=== PATIENT | male | born 1965 | race Hispanic/Latino ===

== ENCOUNTER → 2018-04-17 | Day surgery (SDC) | payer MEDICARE ==
[~2018-04-17] MED LIST: AMLODIPINE BESY10 MG PO; ASPIRIN81 MG PO; ATORVASTATIN CA20 MG PO; CILOSTAZOL100 MG PO; CLONIDINE HCL0.1 MG PO; FENTANYL CITRATE/PF 100MCG/2 ML INJ ONE; GABAPENTIN300 MG PO; GLIPIZIDE-METF1 EAC2 PO; HYDRALAZINE HCL 20 MG/ML VIAL ONE; MIDAZOLAM HCL 2 MG/2 ML VIAL ONE; OR PHACO EYE KIT ONE; PREOP PHACO EYE KIT ONE; SERTRALINE HCL50 MG PO
[2018-04-17 14:30] VITALS: BP 131/82
--- NOTE | 2018-04-17 23:33 | Operative Report ---
DATE OF PROCEDURE: April 17, 2018 PREOPERATIVE DIAGNOSIS: Dense cataract of the left eye. POSTOPERATIVE DIAGNOSIS: Dense cataract of left eye. PROCEDURE: Complicated phacoemulsification with posterior chamber intraocular lens. ANESTHESIA: MAC. COMPLICATIONS: None. LENS: Arcenio SN60WF, 23.5 diopter lens. PROCEDURE IN DETAIL: The patient was taken to the operating room where they had tetracaine drops placed in the eye. Patient's eye was then prepped and draped in the usual sterile ophthalmic way. A lid speculum was placed in the eye and a side-port incision was made. There was evidence of small amount of silicone oil in the anterior chamber and this was aspirated out with a TB syringe. 0.2 mL of 1% lidocaine preservative free was injected in anterior chamber. An air bubble was injected in anterior chamber. Trypan blue dye was used to stain the anterior capsule secondary to a dense cataract. BSS solution was used to irrigate this out. Viscoelastic was placed in the anterior chamber and a keratome was used to make a temporal clear corneal incision. A cystotome and Utrata forceps were used to create an anterior capsulorrhexis without any complications. Hydrodissection was then performed. Phacoemulsification probe was placed in the eye, and the nucleus was phacoemulsified using the [id number] technique. Irrigation-aspiration handpiece was then used to remove any residual cortical material. Viscoelastic was placed in the capsular bag, and an Arcenio SN60WF 23.5 diopter lens was placed in the bag without any complications. Irrigation-aspiration handpiece was then used to remove any residual viscoelastic material from within the eye. Miostat was injected in the anterior chamber, and the wound was checked to make sure there was no evidence of leakage. Two drops of Vigamox were placed in the eye with Maxitrol ointment. A Tom shield was placed on the eye to protect the eye. Patient tolerated the procedure well and will be seen in my office tomorrow. Job#: [id number]
== END | disposition home or self-care (01) ==
LOC: OR 10:50
PROVIDERS: ATTEND Ophthalmology
DX: H25.12 Age-related nuclear cataract, left eye (principal); H54.61 Unqualified visual loss, right eye, normal vision left eye; E78.00 Pure hypercholesterolemia, unspecified; E11.9 Type 2 diabetes mellitus without complications; I10 Essential (primary) hypertension; F41.9 Anxiety disorder, unspecified; F17.210 Nicotine dependence, cigarettes, uncomplicated; Z79.82 Long term (current) use of aspirin; Z79.84 Long term (current) use of oral hypoglycemic drugs
CPT/HCPCS: 36415; 66982; 82948; J0360; J2250

== ENCOUNTER → 2020-03-30 | Outpatient (CLI) | payer OTHER ==
[~2020-03-30] MED LIST changes: -FENTANYL CITRATE/PF 100MCG/2 ML INJ ONE; -HYDRALAZINE HCL 20 MG/ML VIAL ONE; -MIDAZOLAM HCL 2 MG/2 ML VIAL ONE; -OR PHACO EYE KIT ONE; -PREOP PHACO EYE KIT ONE
== END ==
LOC: MRI 10:36
PROVIDERS: ATTEND Podiatrist Foot & Ankle Surgery
DX: M86.072 Acute hematogenous osteomyelitis, left ankle and foot (principal)

== ENCOUNTER → 2021-02-12 | Outpatient (CLI) | payer OTHER | LOC: NM 08:07 | PROVIDERS: ATTEND Internal Medicine | DX: K80.00 Calculus of gallbladder with acute cholecystitis without obstruction (principal) | CPT/HCPCS: 78227; A9537 ==

== ENCOUNTER → 2021-04-07 | Day surgery (SDC) | payer MEDICARE, OTHER ==
[2021-04-05 08:45] LABS: BASOPHILS # (AUTO) 0.1 (0.0-0.1); BASOPHILS % 0.6 % (0.0-1.0); EOSINOPHILS # (AUTO) 0.6 (0.0-0.4); EOSINOPHILS % 5.7 % (0.0-6.0); HEMATOCRIT 46.5 % (38.2-49.6); HEMOGLOBIN 14.3 g/dL (14.0-18.0); LYMPHOCYTES # (AUTO) 1.6 (1.0-3.2); LYMPHOCYTES % 15.2 % (18.0-39.1); MEAN CORPUSCULAR HEMOGLOBIN 28.3 pg (28-32); MEAN CORPUSCULAR HGB CONC 30.8 g/dL (31-35); MEAN CORPUSCULAR VOLUME 91.9 fL (81-99); MONOCYTES # (AUTO) 0.8 (0.2-0.8); MONOCYTES % 8.1 % (4.4-11.3); NEUTROPHILS # (AUTO) 7.1 (2.1-6.9); NEUTROPHILS % 70.1 % (38.7-80.0); PLATELET COUNT 253 x10e3/uL (140-360); RED BLOOD COUNT 5.06 x10e6/uL (4.3-5.7)
[2021-04-05 09:12] LABS: ANION GAP 13.5 mmol/L (8-16); CALCIUM 9.7 mg/dL (8.4-10.2); CREATININE, SERUM 1.94 mg/dL (0.72-1.25); POTASSIUM 4.5 mmol/L (3.5-5.1)
[2021-04-05 09:23] LABS: COLOR,URINE YELLOW (YELLOW)
[2021-04-05 09:24] LABS: CLARITY,URINE SL CLOUDY (CLEAR); KETONES,URINE NEGATIVE (NEGATIVE); LEUKOCYTE ESTERASE ,URINE NEGATIVE (NEGATIVE); NITRITE,URINE NEGATIVE (NEGATIVE); PROTEIN,URINE DIPSTICK 1+ (NEGATIVE); URINE UROBILINOGEN 0.2 mg/dL (0.2 - 1)
[~2021-04-07] MED LIST changes: +BUPIVACAINE 0.25% 30ML SDV ONE; +CLONIDINE HCL0.3 MG PO; +CLOPIDOGREL75 MG PO; +FARXIGA10 MG PO; +FENTANYL CITRATE/PF 100MCG/2 ML INJ ONE; +FOLIC ACID0.4 MG PO; +GLYCOPYRROLATE INJ 0.2 MG/ML VIAL ONE; +JANUVIA25 MG PO; +LIDOCAINE HCL 2% LOCAL INJ 5 ML SDV VIAL INJ ONE; +MELATONIN3 MG PO; +METOPROLOL SUCC25 MG PO; +MIDAZOLAM HCL 2 MG/2 ML VIAL ONE; +NEOSTIGMINE 1 MG/ML 10ML VIAL ONE; +ONDANSETRON HCL INJ 2MG/ML 2ML 2 MG/ML VIAL ONE; +PHENYLEPHRINE HCL 1% 10 MG/ML VIAL ONE; +PIOGLITAZONE HC45 MG PO; +POVIDONE IODINE 0.05% 0.05 % ML PO ONE; +PROPOFOL IV EMULSION 10 MG/ML 20 ML VIAL ONE; +ROCURONIUM BROMIDE 10 MG/ML 5ML VIAL IV ONE; +SEVOFLURANE INHAL SOLN 250 ML PEN BTL ONE; +[UNRECOGNIZED DRUG - OTHER] PO
[2021-04-07 09:57] LABS: INR 0.91; PROTHROMBIN TIME 12.9 seconds (11.9-14.5)
[2021-04-07 09:58] LABS: PARTIAL THROMBOPLASTIN TIME 33.7 seconds (23.8-35.5)
[2021-04-07 15:15] VITALS: BP 145/76
== END | disposition home or self-care (01) ==
LOC: OR 08:55
PROVIDERS: ATTEND Surgery
DX: K80.10 Calculus of gallbladder with chronic cholecystitis without obstruction (principal); G62.9 Polyneuropathy, unspecified; H54.7 Unspecified visual loss; R06.09 Other forms of dyspnea; E78.5 Hyperlipidemia, unspecified; I25.10 Atherosclerotic heart disease of native coronary artery without angina pectoris; K21.9 Gastro-esophageal reflux disease without esophagitis; D64.9 Anemia, unspecified; E11.22 Type 2 diabetes mellitus with diabetic chronic kidney disease; I12.9 Hypertensive chronic kidney disease with stage 1 through stage 4 chronic kidney disease, or unspecified chronic kidney disease; N18.9 Chronic kidney disease, unspecified; Z01.810 Encounter for preprocedural cardiovascular examination; Z01.812 Encounter for preprocedural laboratory examination; Z20.822 Contact with and (suspected) exposure to COVID-19; Z79.82 Long term (current) use of aspirin; Z79.02 Long term (current) use of antithrombotics/antiplatelets; Z79.84 Long term (current) use of oral hypoglycemic drugs; Z79.899 Other long term (current) drug therapy; Z95.5 Presence of coronary angioplasty implant and graft
CPT/HCPCS: 36415; 80053; 81003; 82948; 85025; 85610; 85730; 88304; 93005; C1766; J2001; J2250; J2370; J2405; J2710; J3010; U0002

== ENCOUNTER → 2022-08-17 | Day surgery (SDC) | payer OTHER ==
[2022-08-15 09:43] LABS: BASOPHILS % 0.4 % (0.0-1.0); EOSINOPHILS # (AUTO) 0.2 (0.0-0.4); EOSINOPHILS % 2.4 % (0.0-6.0); HEMATOCRIT 40.3 % (38.2-49.6); MEAN CORPUSCULAR HEMOGLOBIN 30.2 pg (28-32); MEAN CORPUSCULAR HGB CONC 32.3 g/dL (31-35); MEAN CORPUSCULAR VOLUME 93.7 fL (81-99); MONOCYTES # (AUTO) 0.5 (0.2-0.8); MONOCYTES % 5.9 % (4.4-11.3); NEUTROPHILS # (AUTO) 7.3 (2.1-6.9); NEUTROPHILS % 79.9 % (38.7-80.0); PLATELET COUNT 329 x10e3/uL (140-360); RED CELL DISTRIBUTION WIDTH 13.6 % (11.7-14.4)
[2022-08-15 10:02] LABS: ALBUMIN 3.2 g/dL (3.5-5.0); ALBUMIN/GLOBULIN RATIO 0.7 (0.8-2.0); ANION GAP 13.1 mmol/L (8-16); CREATININE, SERUM 1.8 mg/dL (0.72-1.25); POTASSIUM 5.1 mmol/L (3.5-5.1)
[~2022-08-17] VITALS: Ht 180.3 cm; Wt 81.6 kg
[2022-08-17] VITALS (14 sets, daily range): BP systolic 130–165; BP diastolic 73–91; PULSE 68–74; RESP 14–21; TEMP 98; O2SAT 100
[~2022-08-17] MED LIST changes: +ASPIRIN 325 MG TAB ONE; -BUPIVACAINE 0.25% 30ML SDV ONE; +CLOPIDOGREL BISULFATE 75 MG TAB ONE; -GLYCOPYRROLATE INJ 0.2 MG/ML VIAL ONE; +HEPARIN SOD (PORCINE) 1000 UNIT/ML 30ML ONE; +HEPARIN SOD/SOD CHLORIDE 2,000 ML ONE; +IOPAMIDOL 370 MG/ML 100 ML INFUS..BTL INJ ONE; +LIDOCAINE HCL 2% LOCAL 20 ML VIAL ONE; -LIDOCAINE HCL 2% LOCAL INJ 5 ML SDV VIAL INJ ONE; +LOSARTAN POTASS25 MG PO; -NEOSTIGMINE 1 MG/ML 10ML VIAL ONE; +NITROGLYCERIN/D5W 200 MCG/ML 250 ML ONE; -ONDANSETRON HCL INJ 2MG/ML 2ML 2 MG/ML VIAL ONE; -PHENYLEPHRINE HCL 1% 10 MG/ML VIAL ONE; -POVIDONE IODINE 0.05% 0.05 % ML PO ONE; -PROPOFOL IV EMULSION 10 MG/ML 20 ML VIAL ONE; -ROCURONIUM BROMIDE 10 MG/ML 5ML VIAL IV ONE; -SEVOFLURANE INHAL SOLN 250 ML PEN BTL ONE; +SODIUM CHLORIDE 0.9% 1000ML 1,000 ML ONE; +VERAPAMIL HCL 2.5 MG/ML 2 ML VIAL ONE
== END | disposition home or self-care (01) ==
LOC: CATH LAB 09:18
PROVIDERS: ATTEND Internal Medicine
DX: I70.292 Other atherosclerosis of native arteries of extremities, left leg (principal); I82.493 Acute embolism and thrombosis of other specified deep vein of lower extremity, bilateral; I10 Essential (primary) hypertension; I20.8 Other forms of angina pectoris; E78.5 Hyperlipidemia, unspecified; E11.9 Type 2 diabetes mellitus without complications; Z71.82 Exercise counseling; Z71.3 Dietary counseling and surveillance; H54.8 Legal blindness, as defined in USA; Z01.812 Encounter for preprocedural laboratory examination; Z79.84 Long term (current) use of oral hypoglycemic drugs; Z79.02 Long term (current) use of antithrombotics/antiplatelets; Z79.82 Long term (current) use of aspirin; Z79.899 Other long term (current) drug therapy; Z68.34 Body mass index [BMI] 34.0-34.9, adult; Z95.820 Peripheral vascular angioplasty status with implants and grafts; Z89.9 Acquired absence of limb, unspecified; Z82.49 Family history of ischemic heart disease and other diseases of the circulatory system
CPT/HCPCS: 36415; 37225; 75625; 80053; 85025; C1724; C1760; C1769 ×3; C1887; C1894; C2623; J1644; J2001; J2250; J3010; J7030; Q9967; 36247; 37224; 75716; 99152; 99153

== ENCOUNTER 2023-07-11 08:00 | Outpatient (RCR) | payer MEDICARE ==
[2023-06-16 13:21] LABS: BASOPHILS # (AUTO) 0.1 (0.0-0.1); BASOPHILS % 0.8 % (0.0-1.0); EOSINOPHILS # (AUTO) 0.5 (0.0-0.4); EOSINOPHILS % 8.5 % (0.0-6.0); HEMATOCRIT 38.7 % (38.2-49.6); LYMPHOCYTES # (AUTO) 1.8 (1.0-3.2); LYMPHOCYTES % 29.9 % (18.0-39.1); MEAN CORPUSCULAR HEMOGLOBIN 27.1 pg (28-32); MEAN CORPUSCULAR VOLUME 87.4 fL (81-99); MONOCYTES # (AUTO) 0.5 (0.2-0.8); MONOCYTES % 8.7 % (4.4-11.3); NEUTROPHILS # (AUTO) 3.1 (2.1-6.9); NEUTROPHILS % 51.8 % (38.7-80.0); PLATELET COUNT 248 x10e3/uL (140-360); RED BLOOD COUNT 4.43 x10e6/uL (4.3-5.7); RED CELL DISTRIBUTION WIDTH 16.1 % (11.7-14.4); WHITE BLOOD COUNT 5.99 x10e3/uL (4.8-10.8)
[2023-06-16 13:43] LABS: ALBUMIN 3.8 g/dL (3.5-5.0); ALBUMIN/GLOBULIN RATIO 0.9 (0.8-2.0); ANION GAP 14.2 mmol/L (8-16); BILIRUBIN,TOTAL 0.3 mg/dL (0.2-1.2); CALCIUM 9.8 mg/dL (8.4-10.2); CREATININE, SERUM 1.46 mg/dL (0.72-1.25)
[2023-06-16 13:48] LABS: POTASSIUM 5.2 mmol/L (3.5-5.1)
[~2023-07-11 08:00] MED LIST changes: -ASPIRIN 325 MG TAB ONE; -CLOPIDOGREL BISULFATE 75 MG TAB ONE; -FENTANYL CITRATE/PF 100MCG/2 ML INJ ONE; -HEPARIN SOD (PORCINE) 1000 UNIT/ML 30ML ONE; -HEPARIN SOD/SOD CHLORIDE 2,000 ML ONE; -IOPAMIDOL 370 MG/ML 100 ML INFUS..BTL INJ ONE; -LIDOCAINE HCL 2% LOCAL 20 ML VIAL ONE; -MIDAZOLAM HCL 2 MG/2 ML VIAL ONE; +MINERAL OIL/PETROLAT/GLYCERI 6OZ BTL ONE; -NITROGLYCERIN/D5W 200 MCG/ML 250 ML ONE; -SODIUM CHLORIDE 0.9% 1000ML 1,000 ML ONE; +TRYPSIN/BALSAM PERU/CASTOR OIL ONE; -VERAPAMIL HCL 2.5 MG/ML 2 ML VIAL ONE
== END 2023-07-11 13:48 | disposition home or self-care (01) ==
LOC: WCC 08:00
PROVIDERS: ATTEND Podiatrist Foot & Ankle Surgery
DX: E11.621 Type 2 diabetes mellitus with foot ulcer (principal); L97.422 Non-pressure chronic ulcer of left heel and midfoot with fat layer exposed
CPT/HCPCS: 11042; 15275; 36415; 80053; 83036; 84134; 85025; 99212 ×2; 99213 ×7; Q4121

== ENCOUNTER 2023-09-08 08:00 | Outpatient (RCR) | payer MEDICARE ==
[2023-09-08] MEDS ORDERED: TRYPSIN/BALSAM PERU/CASTOR OIL ONE (12:47)
== END 2023-09-08 13:26 | disposition home or self-care (01) ==
LOC: WCC 08:00
PROVIDERS: ATTEND Podiatrist Foot & Ankle Surgery
DX: E11.621 Type 2 diabetes mellitus with foot ulcer (principal); L97.422 Non-pressure chronic ulcer of left heel and midfoot with fat layer exposed

== ENCOUNTER 2023-09-29 15:06 | Outpatient (RCR) | payer MEDICARE ==
[~2023-09-29 15:06] MED LIST changes: -MINERAL OIL/PETROLAT/GLYCERI 6OZ BTL ONE; +SILVER SULFADIAZINE 50GM CREAM ONE
== END 2023-10-11 ==
LOC: WCC 15:06
PROVIDERS: ATTEND Podiatrist Foot & Ankle Surgery
DX: E11.621 Type 2 diabetes mellitus with foot ulcer (principal); L97.422 Non-pressure chronic ulcer of left heel and midfoot with fat layer exposed; S91.101A Unspecified open wound of right great toe without damage to nail, initial encounter
CPT/HCPCS: 87071; 87075; 87186; 87205

== ENCOUNTER 2023-11-10 15:34 | Outpatient (RCR) | payer MEDICARE ==
[~2023-11-10 15:34] MED LIST changes: +MINERAL OIL/PETROLAT/GLYCERI 6OZ BTL ONE; +MUPIROCIN 2% OINT 22 GM TUBE ONE; -SILVER SULFADIAZINE 50GM CREAM ONE
== END 2023-11-11 ==
LOC: WCC 15:34
PROVIDERS: ATTEND Podiatrist Foot & Ankle Surgery
DX: E11.621 Type 2 diabetes mellitus with foot ulcer (principal); L97.428 Non-pressure chronic ulcer of left heel and midfoot with other specified severity; L97.422 Non-pressure chronic ulcer of left heel and midfoot with fat layer exposed; S91.101A Unspecified open wound of right great toe without damage to nail, initial encounter

== ENCOUNTER 2023-12-08 13:58 | Outpatient (RCR) | payer MEDICARE ==
[~2023-12-08 13:58] MED LIST changes: +COLLAGENASE OINTMENT 30 GM TUBE ONE; -MUPIROCIN 2% OINT 22 GM TUBE ONE
== END 2023-12-11 ==
LOC: WCC 13:58
PROVIDERS: ATTEND Podiatrist Foot & Ankle Surgery
DX: E11.621 Type 2 diabetes mellitus with foot ulcer (principal); L97.428 Non-pressure chronic ulcer of left heel and midfoot with other specified severity; S91.101A Unspecified open wound of right great toe without damage to nail, initial encounter; B96.89 Other specified bacterial agents as the cause of diseases classified elsewhere

== ENCOUNTER 2023-12-22 13:04 | Outpatient (RCR) | payer MEDICARE ==
[~2023-12-22 13:04] MED LIST changes: +BALSAM PERU/CASTOR OIL 60 GM OINT...G. TP ONE; -COLLAGENASE OINTMENT 30 GM TUBE ONE; -MINERAL OIL/PETROLAT/GLYCERI 6OZ BTL ONE; -TRYPSIN/BALSAM PERU/CASTOR OIL ONE
[2023-12-22] MEDS ORDERED: TRYPSIN/BALSAM PERU/CASTOR OIL ONE (13:19)
[2023-12-22] MEDS ORDERED: MINERAL OIL/PETROLAT/GLYCERI 6OZ BTL ONE (13:19)
== END 2024-01-11 ==
LOC: WCC 13:04
PROVIDERS: ATTEND Podiatrist Foot & Ankle Surgery
DX: S91.101A Unspecified open wound of right great toe without damage to nail, initial encounter (principal); E11.621 Type 2 diabetes mellitus with foot ulcer; L97.428 Non-pressure chronic ulcer of left heel and midfoot with other specified severity